=== PATIENT | female | born 1990 | race Two or more races ===

== ENCOUNTER 2019-10-25 18:48 | Emergency (ER) | payer OTHER ==
--- NOTE | 2019-10-25 19:52 | EDM.PDOC ---
ED HPI GENERAL MEDICAL PROBLEM - General Chief Complaint: ENT Problem Stated Complaint: SORE THROAT/LOW GRADE FEVER Time Seen by Provider: 10/25/19 19:17 Source of Information: Reports: Patient History Limitations: Reports: No Limitations - History of Present Illness INITIAL COMMENTS - FREE TEXT/NARRATIVE: This is a 29-year-old female. 3 weeks ago she moved here from [place]. About 1week ago her son developed a sore throat and a cough. 3 days later she has developed a cough, sore throat and headache with no appetite. She denies any fever or chills. She has had no nausea or vomiting or diarrhea. She does not believe she was around anyone in [place] who had the COVID virus or anyone around here. 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 Denies: Shortness of Breath, Wheezing Cardiovascular: Reports: No Symptoms Endocrine: Reports: No Symptoms GI/Abdominal: Denies: Diarrhea, Nausea, Vomiting : Reports: No Symptoms Musculoskeletal: Reports: No Symptoms Skin: Reports: No Symptoms Neurological: Reports: No Symptoms Psychiatric: Reports: No Symptoms Hematologic/Lymphatic: Reports: No Symptoms ED EXAM, ENT - Physical Exam Exam: See Below Exam Limited By: No Limitations General Appearance: Alert, WD/WN, No Apparent Distress Eye Exam: Bilateral Eye: Normal Inspection Ears: Normal External Exam, Normal Canal, Normal TMs Nose: Normal Inspection, Other (Minimal nasal congestion) Mouth/Throat: Normal Inspection, Other (Intimal oropharynx inflammation noted). No: Throat Swelling, Tonsillar Exudates, Tonsillar Swelling Head: Normocephalic Neck: Supple Respiratory/Chest: No Respiratory Distress, Lungs Clear, Normal Breath Sounds Cardiovascular: Regular Rate, Rhythm, No Murmur GI/Abdominal: Soft, Non-Tender Back: Full Range of Motion Extremities: Normal Inspection, Normal Range of Motion Neurological: Alert, Oriented Psychiatric: Normal Affect, Normal Mood Skin: Warm, Dry Course - Vital Signs Last Recorded V/S: Last Vital Signs Temp 99.7 F 10/25/19 19:15 Pulse 102 H 10/25/19 19:15 Resp 20 10/25/19 19:15 BP 129/92 H 10/25/19 19:15 Pulse Ox 99 10/25/19 19:15 - Orders/Labs/Meds Orders: Active Orders 24 hr Category Date Time Status CULTURE STREP A CONFIRMATION [RM] Stat Lab 10/25/19 20:01 Results Rapid Strep w/culture conf [STREP SCRN A RAPID W CULT Lab 10/25/19 20:01 Results CONF] [RM] Stat Labs: Laboratory Tests 10/25/19 Range/Units 20:01 SARS Virus RNA (PCR) Positive H (NEGATIVE) - Re-Assessments/Exams Free Text/Narrative Re-Assessment/Exam: 10/25/19 22:09 I spoke to the patient regarding her positive COVID test but negative strep test. She understands she has to go home and self quarantine for the next 14 days. If she worsens she is to call the ER before she comes back to the ER. She is to wear a mask at home and good handwashing and isolate herself from the other family members. Departure - Departure Time of Disposition: 22:10 Disposition: Home, Self-Care 01 Condition: Fair Clinical Impression: COVID-19 virus infection - Discharge Information *PRESCRIPTION DRUG MONITORING PROGRAM REVIEWED*: Not Applicable *COPY OF PRESCRIPTION DRUG MONITORING REPORT IN PATIENT KRISTA: Not Applicable Instructions: COVID-19 Frequently Asked Questions, COVID-19: How to Protect Yourself and Others - CDC, Prevent the Spread of COVID-19 if You Are Sick - [facility] Referrals: PCP,Not In Area [Primary Care Provider] - Forms: ED Department Discharge Additional Instructions: Go home and self quarantine for 14 days, wear your mask at home avoid being with any other family members other than your son who is also COVID positive, if it seems like your symptoms are worsening and need to be seen again please call the ER at [phone] so you can get instructions on how to come back to the ER without infecting anyone else, take Tylenol or Motrin as needed for fever, drink lots of fluids and stay well-hydrated. Sepsis Event Note (ED) - Evaluation Sepsis Screening Result: No Definite Risk - Focused Exam Vital Signs: Vital Signs Temp Pulse Resp BP Pulse Ox 10/25/19 19:15 99.7 F 102 H 20 129/92 H 99 - My Orders Last 24 Hours: My Active Orders 10/25/19 20:01 CULTURE STREP A CONFIRMATION [RM] Stat Rapid Strep w/culture conf [STREP SCRN A RAPID W CULT CONF] [] Stat - Assessment/Plan Last 24 Hours: My Active Orders 10/25/19 20:01 CULTURE STREP A CONFIRMATION [] Stat Rapid Strep w/culture conf [STREP SCRN A RAPID W CULT CONF] [] Stat
== END 2019-10-25 22:30 | disposition home or self-care (01) ==
LOC: JD.ED 18:48
DX: U07.1 COVID-19 (principal)
CPT/HCPCS: 87081; 87430; 99282; 99283; U0002

== ENCOUNTER 2019-11-19 20:48 | Emergency (ER) | payer MEDICAID, OTHER ==
[2019-11-19] MEDS ORDERED: Orphenadrine 100 MG Tab.ER PO STA (22:32)
[2019-11-19] MEDS ORDERED: Ibuprofen 600 MG Tab PO ONE (22:32)
--- NOTE | 2019-11-19 22:39 | EDM.PDOC ---
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 Mchugh is a very pleasant 29-year-old woman with a past medical history significant for testing positive for the SARS-CoV-2 virus on 10/25/2019, but who has not had a fever, cough, or dyspnea, who now presents the ED stating that she has had 8 days of left parascapular pain, and almost 7 days of burning pain to the underside of her left breast. Her pain is made worse if she walks around. No injury to either area. She has not noticed any visible abnormality to either area, such as redness or swelling. The patient states that she has had lactational mastitis twice, but she is not currently breast-feeding. Here in the ED, the patient is found to be hemodynamically stable, afebrile, saturating 98% on room air. Other than her left breast and left parascapular pain, the patient denies having a recent fever, chills, sore throat, ear pain, nasal or sinus congestion, cough, dyspnea, chest pain, palpitations, nausea, vomiting, constipation, diarrhea, abdominal pain, urinary symptoms, recent weight gain or weight loss, recent bloody bowel movements or black bowel movements, recent joint aches, headaches, or rashes. The patient's PCP is in [place], [place]. The patient's is working in this area. Left Breast Pain Score (Numeric/FACES): 7 - Related Data Allergies Allergy/AdvReac Type Severity Reaction Status Date / Time No Known Allergies Allergy Verified 11/19/19 21:09 Home Meds: Home Meds Orphenadrine [Norflex] 1 tab PO Q12H PRN #14 tab.er 11/19/19 [Rx] Past Medical History GAMEMASTER History: Reports: Polycystic Ovaries - Past Surgical History HEENT Surgical History: Reports: Oral Surgery (wisdom teeth extraction) GI Surgical History: Reports: Hernia, Abdominal (periumbilical) Female Surgical History: Reports: Section (x 2), Tubal Ligation (May 2019) Social & Family History - Family History Family Medical History: Noncontributory - Tobacco Use Smoking Status *Q: Never Smoker Second Hand Smoke Exposure: No - Caffeine Use Caffeine Use: Reports: Coffee, Tea - Alcohol Use Alcohol Use History: No - Recreational Drug Use Recreational Drug Use: No - Living Situation & Occupation Living situation: Reports: , with Spouse, with Family (2 kids) Occupation: Unemployed ED ROS GENERAL - Review of Systems Review Of Systems: Comprehensive ROS is negative, except as noted in HPI. ED EXAM, GENERAL - Physical Exam Exam: See Below Exam Limited By: No Limitations General Appearance: Alert, WD/WN, No Apparent Distress Eye Exam: Bilateral Eye: EOMI, Normal Inspection Ears: Normal External Exam, Hearing Grossly Normal Nose: Normal Inspection Throat/Mouth: Normal Inspection, Normal Lips, Normal Voice, No Airway Compromise Head: Atraumatic, Normocephalic Neck: Normal Inspection, Full Range of Motion Respiratory/Chest: No Respiratory Distress, Lungs Clear, Normal Breath Sounds, No Accessory Muscle Use, Other (Reproducible tenderness to palpation of the anterior left fourth intercostal space at about the midclavicular line. No visible abnormality to the left breast, such as swelling, erythema, ecchymosis, rash, or abrasion. Tenderness to palpation of the breast tissue itself, when the chest wall is avoided.) Cardiovascular: Normal Peripheral Pulses, Regular Rate, Rhythm, No Edema, No Gallop, No JVD, No Murmur, No Rub Peripheral Pulses: 3+: Radial (L), Radial (R) GI/Abdominal: Normal Bowel Sounds, Soft, Non-Tender, No Organomegaly, No Distention, No Abnormal Bruit, No Mass (Female) Exam: Deferred Rectal (Female) Exam: Deferred Back Exam: Full Range of Motion, Muscle Spasm (Reproducible tenderness to palpation of the left parascapular musculature) Extremities: Normal Inspection, Normal Range of Motion, No Pedal Edema, Normal Capillary Refill Neurological: Alert, Oriented, Normal Cognition, No Motor/Sensory Deficits Psychiatric: Normal Affect Skin Exam: Warm, Dry, Intact, Normal Color, No Rash Course - Vital Signs Last Recorded V/S: Last Vital Signs Temp 36.8 C 11/19/19 22:58 Pulse 86 11/19/19 22:58 Resp 16 11/19/19 22:58 BP 110/69 11/19/19 22:58 Pulse Ox 99 11/19/19 22:58 - Orders/Labs/Meds Meds: Medications Discontinued Medications Generic Name Dose Route Start Last Admin Trade Name Jose Luis PRN Reason Stop Dose Admin Ibuprofen 600 mg 11/19/19 22:32 11/19/19 22:59 Motrin PO 11/19/19 22:33 600 mg ONETIME ONE Administration Orphenadrine Citrate 100 mg 11/19/19 22:32 11/19/19 22:59 Norflex PO 11/19/19 22:33 100 mg ONETIME STA Administration - Re-Assessments/Exams Free Text/Narrative Re-Assessment/Exam: 11/19/19 22:32 As above, the patient has had 8 days of left parascapular pain, that is reproduced with direct palpation, and 6 days of progressively worsening pain felt under her left breast and into her left breast, reproducible with palpation of the 4th intercostal muscles on the left. Her physical exam is otherwise completely benign, and consistent with her pain being due to muscle spasms. I will therefore start the patient on Norflex and ibuprofen, and discharge her home with a prescription for Norflex. Departure - Departure Time of Disposition: 22:35 Disposition: Home, Self-Care 01 Condition: Good Clinical Impression: Intercostal muscle pain, Back muscle spasm - Discharge Information *PRESCRIPTION DRUG MONITORING PROGRAM REVIEWED*: Not Applicable *COPY OF PRESCRIPTION DRUG MONITORING REPORT IN PATIENT KRISTA: Not Applicable Prescriptions: Orphenadrine [Norflex] 1 tab PO Q12H PRN #14 tab.er PRN Reason: Muscle Spasm Instructions: Muscle Cramps and Spasms, [id number], Musculoskeletal Pain Referrals: Renetta Reyes NP [Nurse Practitioner] - Forms: ED Department Discharge Additional Instructions: You were seen in the emergency room for 8 days of upper left back pain and almost 7 days of pain felt under and in your left breast. Based on your history and physical examination, your pains appear to be due to a muscle spasm. You have been started on the muscle relaxant Norflex, and a prescription for Norflex has been sent to the [facility], located in the [facility] store. Take 1 tablet of Norflex every 12 hours, starting tomorrow morning, 11/20/2019, as prescribed. Norflex works well with ibuprofen. We recommend that you take 3 tablets (600 mg) of [id number] ibuprofen up to every 8 hours, with food, as needed for discomfort. If your symptoms persist, we recommend that you follow-up with Renetta Reyes, or one of the other providers in the clinic, to establish a PCP. If any other problems, please do not hesitate to return to the ER. Sepsis Event Note (ED) - Evaluation Sepsis Screening Result: No Definite Risk - Focused Exam Vital Signs: Vital Signs Temp Pulse Resp BP Pulse Ox 11/19/19 22:58 36.8 C 86 16 110/69 99 11/19/19 22:05 36.8 C 80 16 120/72 97 11/19/19 21:02 36.3 C 68 16 116/80 98
== END 2019-11-19 23:08 | disposition home or self-care (01) ==
LOC: JD.ED 20:48
DX: R07.82 Intercostal pain (principal); M62.830 Muscle spasm of back
CPT/HCPCS: 99283; A9270

== ENCOUNTER 2019-11-22 00:16 | Emergency (ER) | payer MEDICAID, OTHER ==
--- NOTE | 2019-11-22 01:58 | EDM.PDOC ---
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 Grant is a very pleasant 29-year-old woman who tested positive for the SARS-CoV-2 virus on 10/25/2019, but who has not had a fever, cough, or dyspnea, who was seen by me in this ED this past Monday night, 11/19/2019, for a complaint at that time of 8 days of left parascapular pain and almost 7 days of a burning pain to the underside of her left breast. Her pain was made worse if she walked around. She denied having suffered any injury to either area. She had not noticed any visible abnormality to either area. She was afebrile, with an oxygen saturation of 98% on room air. On examination, there was no visible abnormality to the left breast, and the breast itself was not tender, however, there was tenderness to the intercostal muscles deep to the left breast, as well as to the left parascapular muscles. I felt that her pain was due to intercostal muscle spasms and parascapular muscle spasms, therefore I started her on and prescribed Norflex, with the recommendation that she take that along with [id number] ibuprofen. She was referred to the clinic for follow-up. The patient now returns to the ED stating that her left breast pain has pe rsisted. She is not complaining of pain to her left parascapular area. Her left breast pain was improving until one of her children ran into her, and it was exacerbated when she went to bed and laid on her left side. She has not had a fever, and no visible abnormality has developed, such as a rash. She states that she has taken only 1 tablet of Norflex, around noon yesterday, and that she took one 350 mg dose of Tylenol, but has not taken any ibuprofen. Here in the ED, the patient is found to be hemodynamically stable, afebrile, saturating 98% on room air. Other than her left breast and left parascapular muscle pain, the patient denies having a recent fever, chills, sore throat, ear pain, nasal or sinus congestion, cough, dyspnea, chest pain, palpitations, nausea, vomiting, constipation, diarrhea, abdominal pain, urinary symptoms, recent weight gain or weight loss, recent bloody bowel movements or black bowel movements, recent joint aches, headaches, or rashes. The patient's PCP is in [place], [place]. Her is working in this area. The patient did not make an appointment to establish a PCP in our clinic. 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 - Infectious Disease History Infectious Disease History: Reports: Novel Coronavirus - Past Surgical History HEENT Surgical History: Reports: Oral Surgery (wisdom teeth extractions) GI Surgical History: Reports: Hernia, Abdominal (periumbilical) Female Surgical History: Reports: Section (x 2), Tubal Ligation (May 2019) Social & Family History - Family History Family Medical History: Noncontributory - Tobacco Use Smoking Status *Q: Never Smoker Second Hand Smoke Exposure: No - Caffeine Use Caffeine Use: Reports: Coffee, Tea - Alcohol Use Alcohol Use History: No - Recreational Drug Use Recreational Drug Use: No - Living Situation & Occupation Living situation: Reports: , with Spouse, with Family (2 kids) Occupation: Unemployed ED ROS GENERAL - Review of Systems Review Of Systems: Comprehensive ROS is negative, except as noted in HPI. ED EXAM, GENERAL - Physical Exam Exam: See Below Exam Limited By: No Limitations General Appearance: Alert, WD/WN, No Apparent Distress Eye Exam: Bilateral Eye: EOMI, Normal Inspection Ears: Normal External Exam, Hearing Grossly Normal Nose: Normal Inspection Throat/Mouth: Normal Inspection, Normal Lips, Normal Voice, No Airway Compromise Head: Atraumatic, Normocephalic Neck: Normal Inspection, Full Range of Motion Respiratory/Chest: No Respiratory Distress, Lungs Clear, Normal Breath Sounds, No Accessory Muscle Use, Other (No visible abnormality to the left breast, such as swelling, erythema, ecchymosis, or abrasion. No tenderness to palpation of the left breast, however, there is reproducible tenderness to palpation of the underlying intercostal space, and about the 4th costal space, midclavicular to lateral clavicular line). No: Decreased Breath Sounds, Crackles, Rhonchi, Wheezing, Stridor, Pleural Rub, Prolonged Expiration Cardiovascular: Normal Peripheral Pulses, Regular Rate, Rhythm, No Edema, No Gallop, No JVD, No Murmur, No Rub Peripheral Pulses: 3+: Radial (L), Radial (R) GI/Abdominal: Normal Bowel Sounds, Soft, Non-Tender, No Organomegaly, No Distention, No Abnormal Bruit, No Mass (Female) Exam: Deferred Rectal (Female) Exam: Deferred Back Exam: Normal Inspection, Full Range of Motion, NT Extremities: Normal Inspection, Normal Range of Motion, No Pedal Edema, Normal Capillary Refill Neurological: Alert, Oriented, Normal Cognition, No Motor/Sensory Deficits Psychiatric: Normal Affect Skin Exam: Warm, Dry, Intact, Normal Color, No Rash Course - Vital Signs Last Recorded V/S: Last Vital Signs Temp 36.8 C 11/22/19 00:35 Pulse 73 11/22/19 00:35 Resp 16 11/22/19 00:35 BP 123/72 11/22/19 00:35 Pulse Ox 98 11/22/19 00:35 - Orders/Labs/Meds Orders: Active Orders 24 hr Category Date Time Status Chest 2V [CR] Stat Exams 11/22/19 01:18 Taken - Re-Assessments/Exams Free Text/Narrative Re-Assessment/Exam: 11/22/19 01:54 As above, the patient has continued to have waxing and waning pain felt in her left breast, in the setting of being COVID-19 positive. She has taken only 1 dose of Norflex since being seen on 11/19/2019, and is taking [id number] Tylenol, not ibuprofen. She is afebrile, with an oxygen saturation of 98% on room air. On exam, there is no visible abnormality to the underside of her left breast, such as erythema, swelling, or ecchymosis, and there is no tenderness to palpation of the breast itself, only to the chest wall under the left breast. Two-view chest radiograph appears to be grossly normal. The cardiac silhouette is within normal limits. No pulmonary vascular congestion. No pleural effusions. No focal infiltrate. No pneumothorax. Formal read per the Radiologist pending. I think that my assessment from 11/19/2019, that of chest wall pain due to an intercostal muscle spasm, still stands. I recommended that the patient take the Norflex every 12 hours, not just once a day, and that she take ohwh-bwq-[id number] ibuprofen, not acetaminophen. Lastly, I recommended that she be patient. These medicines take time to take effect, and I don't think she has taken enough or waited long enough for them to be effective. The patient expressed understanding. Departure - Departure Time of Disposition: 01:57 Disposition: Home, Self-Care 01 Condition: Good Clinical Impression: Intercostal muscle pain - Discharge Information *PRESCRIPTION DRUG MONITORING PROGRAM REVIEWED*: Not Applicable *COPY OF PRESCRIPTION DRUG MONITORING REPORT IN PATIENT KRISTA: Not Applicable Instructions: Musculoskeletal Pain Referrals: PCP,Not In Area [Primary Care Provider] - Renetta Reyes NP [Nurse Practitioner] - Forms: ED Department Discharge Additional Instructions: You were seen in the emergency room for continued pain felt under your left breast. Work-up in the ER included a chest x-ray, which returned completely normal. There is no sign of pneumonia or a collapsed lung. Based on your history, physical exam, and ER x-ray, your pain appears to be due to a spasm of a muscle in between your ribs. As discussed, we recommend that you continue to take the muscle relaxant Norflex, 1 tablet every 12 hours, as prescribed. As discussed, we recommend that you take hwff-[id number] ibuprofen, 3 tablets (600 mg) up to every 8 hours, with food, as needed for discomfort, instead of acetaminophen (Tylenol). If your symptoms persist, we recommend that you follow-up with Renetta Reyes NP, or one of the other providers in the clinic, to establish a PCP. If any other problems, please do not hesitate to return to the ER. Sepsis Event Note (ED) - Evaluation Sepsis Screening Result: No Definite Risk - Focused Exam Vital Signs: Vital Signs Temp Pulse Resp BP Pulse Ox 11/22/19 00:35 36.8 C 73 16 123/72 98 - My Orders Last 24 Hours: My Active Orders 11/22/19 01:18 Chest 2V [CR] Stat - Assessment/Plan Last 24 Hours: My Active Orders 11/22/19 01:18 Chest 2V [CR] Stat
--- NOTE | 2019-11-22 05:37 | CR ---
Chest: 2 views of the chest were obtained. Comparison: No prior chest imaging is available. Heart size and mediastinum are normal. Lungs show no acute parenchymal change. Bony structures are unremarkable. Impression: 1. Nothing acute is seen on 2 view chest x-ray. Diagnostic code #1 This report was dictated in [facility]
== END 2019-11-22 02:20 | disposition home or self-care (01) ==
LOC: JD.ED 00:16
DX: U07.1 COVID-19 (principal); R07.82 Intercostal pain; Z98.51 Tubal ligation status
CPT/HCPCS: 71046; 71046-26; 99283; 99284-25